=== PATIENT | female | born 1955 | race Caucasian/White ===

== ENCOUNTER 2020-12-10 20:05 | Emergency (ER) | payer OTHER, SELFPAY ==
--- NOTE | ~2020-12-10 | XR_ITS ---
XR abdomen obstructive series 12/10/2020 21:44 Indication: Nausea and vomiting with constipation Procedure: Supine and upright views of the abdomen Comparison: No prior studies for comparison. Findings: There is moderate gas throughout the small bowel and colon. Moderate colonic fecal loading. There are cholecystectomy clips. Cardiomegaly. Lung bases unremarkable. Moderate lumbar spondylosis with scoliosis. Impression: 1: Moderately distended gas-filled small bowel and colon, likely ileus. No definite obstruction. Reviewed, dictated and finalized at location A. Impression: 1: Moderately distended gas-filled small bowel and colon, likely ileus. No defi nite obstruction.
[2020-12-10 20:05] VITALS: BP 126/77; PULSE 70; RESP 18; TEMP 36.6; O2SAT 98
[2020-12-10 20:40] VITALS: BP 125/80; PULSE 78; RESP 18; TEMP 36.6
--- NOTE | 2020-12-10 20:44 | ECG_ITS ---
Measurements Intervals [place] Rate: 108 P: 60 MS: 187 QRS: -23 QRSD: 101 T: 123 QT: 313 QTc: 421 Interpretive Statements SINUS TACHYCARDIA LEFT VENTRICULAR HYPERTROPHY WITH ST-T CHANGE BORDERLINE R WAVE PROGRESSION, ANTERIOR LEADS BORDERLINE ST-T WAVE ABNORMALITY- LATERAL LEADS ABNORMAL ECG Electronically Signed On 12-11-2020 7:01:00 CDT by Randolph Wilson D.O.
--- NOTE | 2020-12-10 20:44 | ED.PSYCH ---
HPI - Psych General Chief Complaint: Psychiatric Symptoms Stated Complaint: suicidal,dry heaving Time Seen by Provider: 12/10/20 20:44 Source: patient Mode of arrival: ambulatory Limitations: no limitations History of Present Illness HPI Narrative: 65-year-old woman who was recently discharged from [facility] comes to the emergency department complaining of dry heaves for the last 4 days. Patient states that she is also hopeless and thinking of killing herself by driving her truck into a tree. 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 She has had no vomitus (bloody or otherwise), chest pain, shortness of breath, abdominal pain, blood in her stools or black stools, and has taken no medications to harm herself. She states that she has had suicidal thoughts off and on for a long time and was hospitalized for medication overdose approximately 20 years ago. She states she was seen at the [place] [facility] yesterday where they did a CT scan which was negative for obstruction. There she had HGB 12.1, potassium 3.4, Cr 1.2 and BUN 26. She was prescribed Zofran and Xanax at that time. She saw her surgeon (Dr Delgado) today who said everything was okay. Dr Delgado did laparoscopy a week or two ago after concerns for a bowel obstruction. Patient states she ate a hamburger this evening just prior to arrival to the ED. Patient states that she has a pacemaker and defibrillator and has prolonged QT syndrome. MD complaint: suicidal ideation Onset (ago): day(s) Duration: constant History of same: Yes Relieving factors: none Context: significant life stressor Associated psychiatric symptoms: suicidal ideation Associated symptoms: nausea and vomiting If self harm: admits thoughts of self harm and has plan Details of plan: Driving her truck into a tree. Related Data Home Medications Medication Instructions Recorded Confirmed Unable to Obtain Home Medications 12/10/20 12/10/20 Allergies Allergy/AdvReac Type Severity Reaction Status Date / Time azithromycin [From Zithromax] Allergy Difficulty Verified 12/10/20 20:40 Breathing Review of Systems Review of Systems: All systems reviewed & are unremarkable except as noted in HPI and below Constitutional: Constitutional: Denies chills and Denies fever(s) Eyes: Eyes: Denies change in vision and Denies photophobia ENT: Denies dysphagia, Denies nasal congestion and Denies sore throat Cardiovascular: Cardiovascular: Denies chest pain and Denies radiating jaw, neck or arm pain Respiratory: Respiratory: Denies cough, Denies dyspnea and Denies wheezing Gastrointestinal: Gastrointestinal: Denies abdominal pain, Denies diarrhea, Reports nausea and Reports vomiting Genitourinary: Genitourinary: Denies hematuria, Denies nocturia and Denies dysuria Musculoskeletal: Musculoskeletal: Denies back pain, Denies arthralgias and Denies joint swelling Integumentary/Breasts: Skin/Breast: Denies pruritus, Denies erythema and Denies rash Neurologic: Denies vertigo, Denies dizziness, Denies syncope, Denies headache(s), Denies focal weakness and Denies numbness Psychiatric: Psychiatric: Reports as per HPI, Reports depression and Reports suicidal ideation Hematologic/Lymphatic: Hematologic/Lymphatic: Denies easy bleeding and Denies easy bruising Allergic/Immunologic: Allergic/Immunologic: Denies tongue swelling [facility] Past Medical History Medical History (Updated 12/10/20 @ 23:13 by Grayson Karimi MD) CHF (congestive heart failure) Hx SBO Hypothyroidism stopped taking thyroid meds about 1 year ago Prolonged QT syndrome Surgical History Surgical History (Updated 12/10/20 @ 22:30 by Grayson Karimi MD) H/O gastric bypass H/O laparoscopy Hx of cholecystectomy Social History Social History (Updated 12/10/20 @ 21:13 by Grayson Karimi MD) Alcohol intake: former
--- NOTE | 2020-12-10 21:11 | PC.NURSE ---
MD wanted to know home meds, yelled at nurse for not calling to get list from pharmacy. Pharmacy closed at 7pm.
[2020-12-10 21:39] LABS: Hematocrit 36.3 % (35.0-49.0); Hemoglobin 10.8 g/dL (12.0-15.0); Mean Corpuscular HGB Conc 29.8 g/dL (32.0-36.0); Mean Corpuscular Hemoglobin 24.2 pg (27.0-31.0); Mean Corpuscular Volume 81.4 fL (78.0-102.0); Mean Platelet Volume 10.2 fl (9.2-11.8); Platelet Count Result 215 K/mm3 (150-420); Red Blood Count 4.46 M/mm3 (4.20-5.40); Red Cell Distribution Width 13.6 % (11.6-14.4); White Blood Count 3.5 K/mm3 (4.8-10.8)
[2020-12-10 21:40] LABS: Amphetamine Screen Urine Negative (Negative); Barbiturate Screen Urine Negative (Negative); Benzodiazepines Screen Urine Positive (Negative); Cannabinoid Screen Urine Negative (Negative); Cocaine Screen Urine Negative (Negative); Methadone Screen Urine Negative (Negative); Opiate Screen Urine Negative (Negative); Phencyclidine Screen Urine Negative (Negative)
[2020-12-10 21:49] LABS: Add Urine Microscopic? YES; Appearance Urine Clear (Clear); Bilirubin Urine Negative (Negative); Blood Urine Negative (Negative); Color Urine Light Yellow (Yellow); Glucose Urine UA Negative (Negative); Ketones Urine Negative (Negative); Leukocyte Esterase Ur Trace LEU/UL (Negative); Nitrate Urine Negative (Negative); Protein Urine 1+ (Negative); Specific Grav Ur 1.015 (1.010-1.020)
--- NOTE | 2020-12-10 21:53 | PC.NURSE ---
2004 patient ate 2 cheeseburgers, order fries, and large coke upon arrival 2026 no emesis noted or nausea
[2020-12-10 21:56] LABS: Bacteria Urine None seen /hpf; RBC Urine 0-2 /hpf (0-2); Squamous Epithelial Cell Urine None seen /hpf (Few); WBC Urine 0-3 /hpf (0-3)
[2020-12-10] MEDS: SODIUM CHLORIDE 0.9% IV 1,000 ML 999 ML IV CONT (22:00)
[2020-12-10 22:01] LABS: Acetaminophen 12 ug/mL (10-30); Alanine Aminotransferase 17 U/L (14-59); Albumin Level 3.9 g/dL (3.4-5.0); Alkaline Phosphatase 117 U/L (46-116); Anion Gap 15 mmol/L (8-16); Aspartate Amino Transferase 18 U/L (15-37); Bilirubin,Total 0.3 mg/dL (0.00-1.00); Blood Urea Nitrogen 21 mg/dL (7-18); Calcium 8.9 mg/dL (8.5-10.1); Carbon Dioxide 23 mmol/L (21-32); Chloride 105 mmol/L (98-108); Estimated CRCL calculation 35 ml/min; Estimated Glomerular Filt Rate 38; Glucose 106 mg/dL (70-99); Osmolality Calculated 299 mOsm/kg (285-295); Potassium 3.3 mmol/L (3.5-5.1); Salicylate 1.1 mg/dL (2.8-20.0); Sodium 143 mmol/L (136-145); Thyroid Stimulating Hormone 5.75 uIU/mL (0.36-3.74)
[2020-12-10 22:10] LABS: Ethanol < 3 mg/dL (0-6)
[2020-12-10 22:11] LABS: Band Neutrophils Percent 0 % (0-6); Basophils Percent Manual 0 % (0-1); Eosinophils Absolute Manual 0.21 K/mm3 (0.02-0.5); Eosinophils Percent Manual 6 % (1-6); Lymphocytes Percent Manual 40 % (18-44); Monocytes Absolute Manual 0.49 K/mm3 (0.1-0.90); Monocytes Percent Manual 14 % (3-9); Neutrophils Percent Manual 40 % (46-73)
[2020-12-10 22:12] LABS: Platelet Estimate Adequate (Adequate)
[2020-12-10] MEDS: POTASSIUM CHLORIDE 20 MEQ TABLET 40 MEQ PO (22:37)
[2020-12-10] MEDS: PANTOPRAZOLE SODIUM IV 40 MG VIAL 80 MG IV PUSH (22:38)
--- NOTE | 2020-12-10 22:40 | PC.NURSE ---
2200 patient in room using hospital phone calling family. Patient told real estate underwriter not to tell family she is here. 2230 family called requesting info on patient, explained couldn't give out any patients name at hospital
--- NOTE | 2020-12-10 22:49 | PC.NURSE ---
2221 faxed release to [facility] 4853 called [facility] amie rojas MD notified
[2020-12-10 23:00] VITALS: BP 133/80; PULSE 72; RESP 20; TEMP 36.9; O2SAT 100
--- NOTE | 2020-12-10 23:17 | PC.NURSE ---
patient telling MD has been in psych hospitals in past for OD During initial interview with underwriter solicitation director denied any depression or suicide or mental health issues
--- NOTE | 2020-12-10 23:23 | PC.NURSE ---
Pt resting per cot, side rails up. sitter at doorway to have direct vision of pt. lights out for sleep. call placed to [facility] for crisis assessment per CJ palencia.
--- NOTE | 2020-12-10 23:33 | PC.NURSE ---
mental health enroute
--- NOTE | 2020-12-11 00:04 | PC.NURSE ---
pt restless in bed while sleeping , this content writer went into room, pt making sounds of crying and talking in sleep. aroused pt, asked if pt was ok, pt states, i was dreaming, they just wont stop F----- with me, even in my sleep . reassurance given. pt back to sleep. awaiting arrival of freddie ortiz, counselor for [facility].
[2020-12-11 00:52] VITALS: BP 149/80; PULSE 89; RESP 19; O2SAT 95
[2020-12-11 01:35] VITALS: BP 129/89; PULSE 89; RESP 19; O2SAT 96
[2020-12-11 02:53] VITALS: BP 129/76; PULSE 89; RESP 18; TEMP 36.1; O2SAT 97
[2020-12-11 02:55] LABS: SARS-CoV-2 RNA PCR Negative (Negative)
--- NOTE | 2020-12-11 03:04 | PC.NURSE ---
FOURTH TIME CHART PRINTED AND FAXED FOR MENTAL HEALTH COORDINATOR
--- NOTE | 2020-12-11 03:36 | PC.NURSE ---
ATE 100% OF BOX LUNCH TO INCLUDE TURKEY SANDWICH, COTTAGE CHEESE, AND POTATO CHIPS. NO NAUSEA
[2020-12-11] MEDS: ACETAMINOPHEN 325 MG TABLET 650 MG PO (04:30)
[2020-12-11] MEDS: ALPRAZolam (*CRX) 0.5 MG TABLET PO (04:34)
[2020-12-11 06:28] VITALS: BP 122/78; PULSE 89; RESP 20; TEMP 36.4; O2SAT 95
--- NOTE | 2020-12-11 07:25 | PC.NURSE ---
pt resting comfortably on stretcher. [facility] conacted to get eta on transfer amulance.
--- NOTE | 2020-12-15 16:31 | PC.NURSE ---
IV fluids complete 2199
== END 2020-12-11 07:53 ==
PROVIDERS: Emergency Provider Emergency Medicine; PCP Emergency Medicine
DX: R45.851 Suicidal ideations (principal); E87.6 Hypokalemia; R79.89 Other specified abnormal findings of blood chemistry; D64.9 Anemia, unspecified; E03.9 Hypothyroidism, unspecified
CPT/HCPCS: 36415; 74019; 80053; 80307; 81001; 84443; 85025; 93005; 96374; 99285; A9270; C9113; C9803; J7030; U0003; U0005